=== PATIENT | female | born 1995 | race Hispanic/Latino ===

== ENCOUNTER 2018-08-06 19:19 | Emergency (ER) | payer OTHER, SELFPAY ==
[2018-08-06] MEDS ORDERED: HYDROcodone/Acetaminophen 10/325 mg Tablet ONE (20:35)
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
== END 2018-08-06 21:30 | disposition home or self-care (01) ==
LOC: ERS 19:19
DX: S62.611A Displaced fracture of proximal phalanx of left index finger, initial encounter for closed fracture (principal); S90.112A Contusion of left great toe without damage to nail, initial encounter; S10.91XA Abrasion of unspecified part of neck, initial encounter; V89.2XXA Person injured in unspecified motor-vehicle accident, traffic, initial encounter

== ENCOUNTER 2018-08-20 11:17 | Outpatient (CLI) | payer OTHER, SELFPAY ==
--- NOTE | 2018-08-20 12:53 | RAD ---
LEFT FINGER THREE VIEWS: History: Follow up fracture. Comparison: 08-06-18 FINDINGS/IMPRESSION: There is a oblique fracture involving the proximal phalanx of the left index finger again seen withou t significant change in alignment or interval healing. POS: [facility]
== END 2018-08-20 11:18 | disposition home or self-care (01) ==
LOC: SCSRAD 11:17
PROVIDERS: ATTEND Family Medicine
DX: S62.611A Displaced fracture of proximal phalanx of left index finger, initial encounter for closed fracture (principal)

== ENCOUNTER 2018-08-28 07:13 | Day surgery (SDC) | payer OTHER, SELFPAY ==
[2018-08-27 13:26] VITALS: BMI 22.8
[2018-08-28] MEDS ORDERED: CEFAZOLIN/Water 2 GM/20 ML SYRINGE ONE (08:37)
[2018-08-28] MEDS ORDERED: Midazolam HCl 2 mg/2 ml Vial ONE (08:38)
[2018-08-28] MEDS ORDERED: Fentanyl 100 MCG/2 ML VIAL ONE ×2 (09:07→12:20)
[2018-08-28] MEDS ORDERED: Bupivacaine 0.25% HCL 30 ML VIAL ONE (09:12)
[2018-08-28] MEDS ORDERED: Lidocaine 1% (PF) 30 ML VIAL ONE (09:12)
[2018-08-28] MEDS ORDERED: Meperidine HCl/PF 25 MG/ML VIAL ONE (12:01)
[2018-08-28] MEDS ORDERED: PROPOFOL 200 MG/20 ML VIAL ONE (12:48)
[2018-08-28] MEDS ORDERED: Lidocaine 1% PF 5 ML VIAL ONE (12:48)
[2018-08-28] MEDS ORDERED: Ketorolac Tromethamine 30 MG/ML VIAL ONE (12:48)
[2018-08-28] MEDS ORDERED: PHENYLEPHRINE-NS 100 MCG/ML 10 ML SYRINGE ONE (12:48)
[2018-08-28] MEDS ORDERED: Dexamethasone 20 MG/5 ML VIAL ONE (12:48)
[2018-08-28] MEDS ORDERED: Ondansetron HCl/PF 4 MG/2 ML Vial ONE (12:48)
[2018-08-28] MEDS ORDERED: HYDROcodone/Acetaminophen 5/325 mg Tablet ONE (13:29)
[2018-08-28] MEDS ORDERED: Morphine 2 MG/ML SYRINGE ONE (13:48)
[2018-08-28] MEDS ORDERED: Morphine 4 MG/ML VIAL ONE (14:04)
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
== END 2018-08-28 14:47 | disposition home or self-care (01) ==
LOC: SDC 07:13
PROVIDERS: ATTEND Surgery Surgery of the Hand
PROC: 0PSV04Z Reposition Left Finger Phalanx with Internal Fixation Device, Open Approach (ICD-10-PCS; principal; 2018-08-28)
DX: S62.611A Displaced fracture of proximal phalanx of left index finger, initial encounter for closed fracture (principal); Z79.1 Long term (current) use of non-steroidal anti-inflammatories (NSAID); V89.2XXA Person injured in unspecified motor-vehicle accident, traffic, initial encounter
CPT/HCPCS: 96374; 96375; C1713; J1100; J1885; J2001; J2175; J2250; J2270; J2405; J2704; J3010; S0020